=== PATIENT | female | born 1985 | race African-American/Black ===

== ENCOUNTER 2017-11-19 09:13 | Emergency (ER) | payer SELFPAY ==
[~2017-11-19] VITALS: Ht 165.1 cm; Wt 96.2 kg
[~2017-11-19 09:13] MED LIST: METR500T PO; NAPR-514 PO; OXYC-323 PO
[2017-11-19 09:54] VITALS: BP 122/71
--- NOTE | 2017-11-19 10:10 | PHYS DOC ---
Past Medical History Past Medical History: No Pertinent History Past Surgical History: , Tubal ligation Alcohol Use: Occasionally Drug Use: Marijuana Adult General Chief Complaint Chief Complaint: POST-OP PROBLEM HPI HPI Patient is a 32-year-old female who presents with complaint of bleeding from postop site. Patient had surgery for removal of an ovary last week and states that up until yesterday things had been uneventful. She states that she had slept on her side last night when she woke up this morning she saw quite a bit of blood. She states that there is no active bleeding currently. She states that on the right side of the wound it had been hard yesterday, stating that there was a knot there but then this morning it is soft again. She denies any fever, nausea or vomiting. Review of Systems Review of Systems Constitutional: Denies fever or chills [] Respiratory: Denies cough or shortness of breath [] Cardiovascular: Denies chest pain[] GI: Admits to mild postoperative abdominal discomfort but denies any nausea or vomiting.[] : Denies dysuria or hematuria [] Integument: Denies rash or skin lesions [] All other systems were reviewed and found to be within normal limits, except as documented in this note. Allergies Allergies Allergies Coded Allergies Type Severity Reaction Last Updated Verified No Known Drug Allergies 12/27/15 No Physical Exam Physical Exam Constitutional: Well developed, well nourished, no acute distress, non-toxic appearance. [] Neck: Normal range of motion, no tenderness, supple, no stridor. [] Cardiovascular:Heart rate regular rhythm, no murmur [] Lungs & Thorax: Bilateral breath sounds clear to auscultation [] Abdomen: Bowel sounds normal, soft. [] Skin: Warm, dry, no erythema, no rash. Surgical wound is clean, dry and intact with no active bleeding. No secondary signs of infection are present. [] EKG EKG [] Radiology/Procedures Radiology/Procedures [] Course & Med Decision Making Course & Med Decision Making Pertinent Labs and Imaging studies reviewed. (See chart for details) [] Dragon Disclaimer Dragon Disclaimer This electronic medical record was generated, in whole or in part, using a voice recognition dictation system. Departure Departure Impression: Primary Impression: Postoperative bleeding from incision Additional Impression: Postoperative hemorrhage of skin following non-dermatologic procedure Disposition: 01 HOME, SELF-CARE Condition: STABLE Referrals: NO PCP (PCP) Patient Instructions: Postsurgical Bleeding Problem Qualifiers JAIRO GALVEZ Jr. DO Nov 19, 2017 10:10
== END 2017-11-19 10:15 | disposition home or self-care (01) ==
LOC: ER 09:13
DX: L76.21 Postprocedural hemorrhage of skin and subcutaneous tissue following a dermatologic procedure (principal); Z98.890 Other specified postprocedural states; Z98.51 Tubal ligation status
CPT/HCPCS: 99281

== ENCOUNTER 2019-03-03 11:24 | Emergency (ER) | payer SELFPAY ==
[~2019-03-03] VITALS: Ht 165.1 cm; Wt 92.3 kg
[~2019-03-03 11:24] MED LIST changes: -OXYC-323 PO; +OXYC1TAB15 PO
[2019-03-03 12:11] VITALS: BP 139/90
--- NOTE | 2019-03-03 13:17 | RAD ---
CHEST PA LATERAL History: Cough and mid chest pain Comparison: None. Findings: Frontal and lateral views of the chest were obtained. The cardiomediastinal silhouette is normal. Pulmonary vasculature is normal. The lungs are clear. No pleural effusion or pneumothorax is seen. There is no acute bone abnormality. IMPRESSION: No acute cardiopulmonary process. Electronically signed by: Caesar Garcia MD (03/03/2019 1:15 PM) [facility]
[2019-03-03 13:20] LABS: INFLUENZA A PATIENT NEGATIVE (NEGATIVE); INFLUENZA B PATIENT POSITIVE (NEGATIVE)
[2019-03-03] MEDS ORDERED: PRED50TA PO (13:24)
[2019-03-03] MEDS ORDERED: BENZ100C PO (13:24)
--- NOTE | 2019-03-03 13:25 | PHYS DOC ---
Past Medical History Past Medical History: Other Additional Past Medical Histor: TWISTED R OVARY Past Surgical History: Tubal ligation Additional Past Surgical Histo: R OVARY REMOVED Alcohol Use: Rarely Drug Use: Marijuana Adult General Chief Complaint Chief Complaint: COUGH HPI HPI Patient is a 33 year old female who presents to the ED today complaining of cough, body aches, subjective fevers, symptoms for 3 days. Review of Systems Review of Systems Constitutional: Reports subjective fevers Eyes: Denies change in visual acuity, redness, or eye pain [] HENT: Denies nasal congestion or sore throat [] Respiratory: Reports cough, denies shortness of breath [] Cardiovascular: No additional information not addressed in HPI [] GI: Denies abdominal pain, nausea, vomiting, bloody stools or diarrhea [] : Denies dysuria or hematuria [] Musculoskeletal: Denies back pain or joint pain [] Integument: Denies rash or skin lesions [] Neurologic: Denies headache, focal weakness or sensory changes [] All other systems were reviewed and found to be within normal limits, except as documented in this note. Allergies Allergies Allergies Coded Allergies Type Severity Reaction Last Updated Verified No Known Drug Allergies 12/27/15 No Physical Exam Physical Exam Constitutional: Well developed, well nourished, no acute distress, non-toxic appearance. [] HENT: Normocephalic, atraumatic, bilateral external ears normal, oropharynx james st, no oral exudates, nose normal. [] Eyes: PERRLA, EOMI, conjunctiva normal, no discharge. [] Neck: Normal range of motion, no tenderness, supple, no stridor. [] Cardiovascular:Heart rate regular rhythm, no murmur [] Lungs & Thorax: Bilateral breath sounds clear to auscultation [] Abdomen: Bowel sounds normal, soft, no tenderness, no masses, no pulsatile masses. [] Skin: Warm, dry, no erythema, no rash. [] Back: No tenderness, no CVA tenderness. [] Extremities: No tenderness, no cyanosis, no clubbing, ROM intact, no edema. [] Neurologic: Alert and oriented X 3, normal motor function, normal sensory function, no focal deficits noted. [] Psychologic: Affect normal, judgement normal, mood normal. [] Current Patient Data Vital Signs Vital Signs Date Time Temp Pulse Resp B/P (MAP) Pulse Ox O2 Delivery O2 Flow Rate FiO2 03/03/19 12:11 98.4 83 20 139/90 (106) 96 Room Air 98.4 Lab Values Laboratory Tests Test 03/03/19 12:09 Influenza Type A Antigen Negative (NEGATIVE) Influenza Type B Antigen Positive (NEGATIVE) EKG EKG [] Radiology/Procedures Radiology/Procedures []PROCEDURE: CHEST PA & LATERAL CHEST PA LATERAL History: Cough and mid chest pain Comparison: None. Findings: Frontal and lateral views of the chest were obtained. The cardiomediastinal silhouette is normal. Pulmonary vasculature is normal. The lungs are clear. No pleural effusion or pneumothorax is seen. There is no acute bone abnormality. IMPRESSION: No acute cardiopulmonary process. Electronically signed by: Rhett Dowling MD (03/03/2019 1:15 PM) [facility] DICTATED and SIGNED BY: RHETT DOWLING MD DATE: 03/03/19 9742 Course & Med Decision Making Course & Med Decision Making Pertinent Labs and Imaging studies reviewed. (See chart for details) This is a 33-year-old female patient presenting to the ED today with flulike symptoms including body aches cough and fever for 3 days. Patient is afebrile in the ED. Positive for influenza B. Chest x-ray is negative. Supportive care measures recommended. Dragon Disclaimer Dragon Disclaimer This electronic medical record was generated, in whole or in part, using a voice recognition dictation system. Departure Departure Impression: Primary Impression: Influenza B Additional Impressions: Fever Cough Disposition: HOME, SELF-CARE Condition: STABLE Referrals: NO PCP (PCP) follow up in 1 week with your doctor Patient Instructions: Cough, Adult, [id number], Influenza, Adult Additional Instructions: You tested positive for influenza B this is a viral illness, it will ran its own course. We recommend you rest, push fluids, take Tylenol/Motrin for pain or fever. Follow-up with your doctor in the next 1-2 weeks. Scripts Benzonatate (TESSALON PERLE) 100 Mg Capsule 1 CAP PO TID, #30 CAP Prov: MUTUNGA,RAYMON MODEL TECHNICIAN 03/03/19 Prednisone (PREDNISONE) 50 Mg Tablet 1 TAB PO DAILY, #5 TAB Prov: MUTUNGA,RAYMON MODEL TECHNICIAN 03/03/19 Problem Qualifiers Additional Impressions: Fever Fever type: unspecified Qualified Codes: R50.9 - Fever, unspecified MUTUNGARAYMON VALLEJO Mar 03, 2019 13:25
== END 2019-03-03 13:40 | disposition home or self-care (01) ==
LOC: ER 11:24
DX: J10.1 Influenza due to other identified influenza virus with other respiratory manifestations (principal); R50.9 Fever, unspecified; R07.89 Other chest pain; R05 Cough; F12.90 Cannabis use, unspecified, uncomplicated; Z98.51 Tubal ligation status; Z98.890 Other specified postprocedural states
CPT/HCPCS: 71046; 87804; 99285

== ENCOUNTER 2019-10-24 17:45 | Emergency (ER) | payer BC ==
[~2019-10-24] VITALS: Ht 162.6 cm; Wt 95.0 kg
[~2019-10-24 17:45] MED LIST changes: +BENZ100C PO; +PRED50TA PO
[2019-10-24] MEDS ORDERED: ONDANSETRON PF 4 MG/2 ML VIAL. IV ONE (19:45)
[2019-10-24] MEDS ORDERED: MORPHINE SULFATE 4 MG/ML VIAL. IV ONE (19:45)
[2019-10-24] MEDS ORDERED: IV NORMAL SALINE 1000ML BAG 1,000 ML IV ONE (19:45)
[2019-10-24 19:58] LABS: BASO # 0.1 x10^3/uL (0.0-0.2); BASO % 1 % (0-3); EOS # 0.1 x10^3/uL (0.0-0.7); EOS % 1 % (0-3); HEMATOCRIT 30.2 % (36.0-47.0); HEMOGLOBIN 9.5 g/dL (12.0-15.5); LYMPH % 13 % (24-48); MEAN CORPUSCULAR HEMOGLOBIN 26 pg (25-35); MEAN CORPUSCULAR HGB CONC 32 g/dL (31-37); MEAN CORPUSCULAR VOLUME 82 fL (79-100); MONO # 0.8 x10^3/uL (0.0-1.1); MONO % 5 % (0-9); NEUT # 11.8 x10^3/uL (1.8-7.7); NEUT % 81 % (31-73); PLATELET COUNT 354 x10^3/uL (140-400); RED BLOOD COUNT 3.71 x10^6/uL (3.50-5.40); RED CELL DISTRIBUTION WIDTH 16.7 % (11.5-14.5); WHITE BLOOD COUNT 14.7 x10^3/uL (4.0-11.0)
[2019-10-24 20:06] LABS: CALCIUM 9.1 mg/dL (8.5-10.1); CREATININE 0.7 mg/dL (0.6-1.0); GFR 114.6; POTASSIUM 3.9 mmol/L (3.5-5.1)
[2019-10-24 20:12] LABS: ALBUMIN 3.3 g/dL (3.4-5.0); ALBUMIN/GLOBULIN RATIO 0.8 (1.0-1.7); MAGNESIUM 1.9 mg/dL (1.8-2.4); TOTAL BILIRUBIN 0.3 mg/dL (0.2-1.0); TOTAL PROTEIN 7.5 g/dL (6.4-8.2)
[2019-10-24] MEDS ORDERED: CONTRAST GIVEN. MC PRN (20:30)
[2019-10-24] MEDS ORDERED: IOHEXOL 300 MG/ML 100ML VIAL. IV ONE (20:30)
--- NOTE | 2019-10-24 21:17 | RAD ---
CT ABD PELV W/ IV CONTRST ONLY History: Reason: perirectal abscess Technique: After the administration of intravenous contrast, CT imaging was performed of the abdomen and pelvis. Multiplanar images are reviewed. Exposure: One or more of the following individualized dose reduction techniques were utilized for this examination: 1. Automated exposure control 2. Adjustment of the mA and/or kV according to patient size 3. Use of iterative reconstruction technique. Comparison: None Findings: Lower chest: No consolidation or pleural effusion. Abdomen and pelvis: The liver, spleen, adrenal glands, pancreas and gallbladder are unremarkable. Normal appearance the kidneys. No hydronephrosis. Normal appendix. No evidence of bowel obstruction. No pathologic lymphadenopathy. Small pelvic ascites. Infiltration of the perineum soft tissues posterior to the anal sphincter. There is hypodense collection within this region measures 2.5 x 1.7 cm (series 2 image 96). Bones: No pathologic osseous lesions. Impression: 1. Infiltration of the perineum soft tissues posterior to the anal sphincter with low-attenuation collection concerning for abscess. Follow-up MRI can further evaluate for fistulous communication to the anus as clinically warranted. 2. Small pelvic free fluid. Electronically signed by: Meet Aquino DO (10/24/2019 9:14 PM) [facility]
[2019-10-24 21:33] VITALS: BP 145/83
[2019-10-24] MEDS ORDERED: CLIN150C14 PO (21:51)
[2019-10-24] MEDS ORDERED: HYDR-2759 PO (21:51)
--- NOTE | 2019-10-24 21:52 | PHYS DOC ---
Past Medical History Past Medical History: Other Additional Past Medical Histor: TWISTED R OVARY (EDUARDO REYES APRN) Past Surgical History: Tubal ligation Additional Past Surgical Histo: R OVARY REMOVED (EDUARDO REYES APRN) Smoking Status: Never Smoker Alcohol Use: Rarely Drug Use: Marijuana (EDUARDO REYES APRN) General Adult EDM: Chief Complaint: ABSCESS HPI: HPI: Patient is a 34 year old AA female who presents to the emergency department, accompanied by her significant other, with complaints of swelling, pain, and tenderness near her rectum. Patient states it feels similar to when she had a previous boil in the same area about 10 years ago. Patient reports that symptoms started a week ago and have continued to get worse. She denies any drainage or bleeding from the site. She denies any fever, cough, abdominal pain, nausea, vomiting, diarrhea, or shortness of breath she currently rates the pain a 10 out of 10 on the pain scale she reports that the pain increases with palpation and when she sits, she denies any alleviating factors. (EDUARDO REYES APRN) Review of Systems: Review of Systems: Constitutional: Denies fever or chills. [] Respiratory: Denies cough or shortness of breath. [] GI: Denies abdominal pain, nausea, vomiting, bloody stools or diarrhea; see HPI [] : Denies dysuria. [] Integument: See HPI Neurologic: Denies headache Psychiatric: Denies depression or anxiety. [] Complete ROS is negative unless otherwise stated in the HPI. (EDUARDO REYES APRN) Heart Score: Risk Factors: Risk Factors: DM, Current or recent (<one month) smoker, HTN, HLP, family history of CAD, obesity. Risk Scores: Score 0 - 3: 2.5% MACE over next 6 weeks - Discharge Home Score 4 - 6: 20.3% MACE over next 6 weeks - Admit for Clinical Observation Score 7 - 10: 72.7% MACE over next 6 weeks - Early Invasive Strategies (EDUARDO REYES APRN) Current Medications: Current Medications Medications (Trade) Dose Ordered Sig/August Start Time Stop Time Status Last Admin Dose Admin Info (CONTRAST GIVEN -- Rx MONITORING) 1 each PRN DAILY PRN 10/24/19 20:30 10/26/19 20:29 Iohexol (Omnipaque 300 Mg/ml) 75 ml 1X ONCE 10/24/19 20:30 10/24/19 20:31 DC 10/24/19 20:53 75 ML Morphine Sulfate (Morphine Sulfate) 4 mg 1X ONCE 10/24/19 19:45 10/24/19 19:46 DC 10/24/19 20:08 4 MG Ondansetron HCl (Zofran) 4 mg 1X ONCE 10/24/19 19:45 10/24/19 19:46 DC 10/24/19 20:08 4 MG Sodium Chloride 1,000 ml @ 1,000 mls/hr 1X ONCE 10/24/19 19:45 10/24/19 20:44 DC 10/24/19 20:09 1,000 MLS/HR (EDUARDO REYES APRN) Allergies: Allergies: Allergies Coded Allergies Type Severity Reaction Last Updated Verified No Known Drug Allergies 12/27/15 No (EDUARDO REYES APRN) Physical Exam: PE: Constitutional: Well developed, well nourished, no acute distress, non-toxic appearance, obese. [] HENT: Normocephalic, atraumatic, bilateral external ears normal, nose normal. [] Eyes: PERRLA, EOMI, conjunctiva normal, no discharge. [] Neck: Normal range of motion, no stridor. [] Cardiovascular:Heart rate regular rhythm Lungs & Thorax: Respirations even and unlabored, no retractions, no respiratory distress Abdomen: soft, no tenderness Rectal: There is a swollen, tender, erythemic area located at 3:00 near the rectal opening concerning for perirectal abscess., No active bleeding, no drainage, no visible pustule Skin: Warm, dry, Extremities: No cyanosis, ROM intact, no edema. [] Neurologic: Alert and oriented X 3, no focal deficits noted. [] Psychologic: Affect normal, judgement normal, mood normal. [] (EDUARDO REYES APRN) Current Patient Data: Labs: Laboratory Tests Test 10/24/19 19:48 White Blood Count 14.7 x10^3/uL (4.0-11.0) H Red Blood Count 3.71 x10^6/uL (3.50-5.40) Hemoglobin 9.5 g/dL (12.0-15.5) L Hematocrit 30.2 % (36.0-47.0) L Mean Corpuscular Volume 82 fL (79-100) Mean Corpuscular Hemoglobin 26 pg (25-35) Mean Corpuscular Hemoglobin Concent 32 g/dL (31-37) Red Cell Distribution Width 16.7 % (11.5-14.5) H Platelet Count 354 x10^3/uL (140-400) Neutrophils (%) (Auto) 81 % (31-73) H Lymphocytes (%) (Auto) 13 % (24-48) L Monocytes (%) (Auto) 5 % (0-9) Eosinophils (%) (Auto) 1 % (0-3) Basophils (%) (Auto) 1 % (0-3) Neutrophils # (Auto) 11.8 x10^3/uL (1.8-7.7) H Lymphocytes # (Auto) 2.0 x10^3/uL (1.0-4.8) Monocytes # (Auto) 0.8 x10^3/uL (0.0-1.1) Eosinophils # (Auto) 0.1 x10^3/uL (0.0-0.7) Basophils # (Auto) 0.1 x10^3/uL (0.0-0.2) Sodium Level 138 mmol/L (136-145) Potassium Level 3.9 mmol/L (3.5-5.1) Chloride Level 105 mmol/L (98-107) Carbon Dioxide Level 23 mmol/L (21-32) Anion Gap 10 (6-14) Blood Urea Nitrogen 10 mg/dL (7-20) Creatinine 0.7 mg/dL (0.6-1.0) Estimated GFR (Cockcroft-Gault) 114.6 BUN/Creatinine Ratio 14 (6-20) Glucose Level 110 mg/dL (70-99) H Calcium Level 9.1 mg/dL (8.5-10.1) Magnesium Level 1.9 mg/dL (1.8-2.4) Total Bilirubin 0.3 mg/dL (0.2-1.0) Aspartate Amino Transferase (AST) 41 U/L (15-37) H Alanine Aminotransferase (ALT) 56 U/L (14-59) Alkaline Phosphatase 100 U/L (46-116) Total Protein 7.5 g/dL (6.4-8.2) Albumin 3.3 g/dL (3.4-5.0) L Albumin/Globulin Ratio 0.8 (1.0-1.7) L Laboratory Tests 10/24/19 19:48 Laboratory Tests 10/24/19 19:48 Vital Signs: Vital Signs Date Time Temp Pulse Resp B/P (MAP) Pulse Ox O2 Delivery O2 Flow Rate FiO2 10/24/19 20:16 72 147/71 (96) 10/24/19 20:08 16 10/24/19 19:04 97.3 100 Room Air 97.3 (EDUARDO REYES APRN) EKG: EKG: [] (EDUARDO REYES APRN) Radiology/Procedures: Radiology/Procedures: PROCEDURE: CT ABD PELV W/ IV CONTRST ONLY CT ABD PELV W/ IV CONTRST ONLY History: Reason: perirectal abscess Technique: After the administration of intravenous contrast, CT imaging was performed of the abdomen and pelvis. Multiplanar images are reviewed. Exposure: One or more of the following individualized dose reduction techniques were utilized for this examination: 1. Automated exposure control 2. Adjustment of the mA and/or kV according to patient size 3. Use of iterative reconstruction technique. Comparison: None Findings: Lower chest: No consolidation or pleural effusion. Abdomen and pelvis: The liver, spleen, adrenal glands, pancreas and gallbladder are unremarkable. Normal appearance the kidneys. No hydronephrosis. Normal appendix. No evidence of bowel obstruction. No pathologic lymphadenopathy. Small pelvic ascites. Infiltration of the perineum soft tissues posterior to the anal sphincter. There is hypodense collection within this region measures 2.5 x 1.7 cm (series 2 image 96). Bones: No pathologic osseous lesions. Impression: 1. Infiltration of the perineum soft tissues posterior to the anal sphincter with low-attenuation collection concerning for abscess. Follow-up MRI can further evaluate for fistulous communication to the anus as clinically warranted. 2. Small pelvic free fluid.[] (EDUARDO REYES APRN) Course & Med Decision Making: Course & Med Decision Making Pertinent Labs and Imaging studies reviewed. (See chart for details) 34-year-old female presents to the emergency department with complaints of pain near her rectum for the last week. She stated that her symptoms were similar to previous rectal abscesses. 2019-while awaiting CT to be done patient's abscess opened on its own without any intervention. A large amount of bloody foul-smelling pus drained from this site. CBC revealed a white blood cell count 14.7, hemoglobin 9.5, hematocrit of 30.2; CMP revealed glucose of 110, AST of [address] revealed: 1. Infiltration of the perineum soft tissues posterior to the anal sphincter with low-attenuation collection concerning for abscess. Follow-up MRI can further evaluate for fistulous communication to the anus as clinically warranted. 2. Small pelvic free fluid. [id number] spoke with Dr. Gutiérrez and advised of the patient. Will prescribe clind amycin and have patient follow-up with him as outpatient. Patient verbalized an understanding of home care, medications, follow-up, and return to ED instructions and was in agreement with the plan of care. [] (EDUARDO REYES APRN) Dragon Disclaimer: Dragon Disclaimer: This electronic medical record was generated, in whole or in part, using a voice recognition dictation system. (EDUARDO REYES APRN) Departure Departure Impression: Primary Impression: Perirectal abscess Disposition: HOME, SELF-CARE Condition: STABLE Referrals: NO PCP (PCP) ROBERTA LEWIS MD Patient Instructions: Queta-Rectal Abscess Additional Instructions: Fill the prescriptions and use it as directed. Sitz baths as instructed. Call Dr. Lewis's office for follow up. Return to the ER if symptoms worsen. Scripts Hydrocodone/Acetaminophen (Hydrocodone-Acetamin 5-325 mg) 1 Each Tablet 1 EACH PO TID PRN for PAIN for 4 Days, #12 TAB 0 Refills Prov: EDUARDO REYES APRN 10/24/19 Clindamycin Hcl (CLINDAMYCIN HCL) 150 Mg Capsule 450 MG PO TID for 7 Days, #63 CAP 0 Refills Prov: EDUARDO REYES APRN 10/24/19 Justicifation of Admission Dx: Justifications for Admission: Justification of Admission Dx: N/A (EDUARDO REYES APRN) Attending Signature Attending Signature I have reviewed the PA/[employer]'s note and plan of care. I was available for consultation as needed during the patient's visit in the emergency department. I agree with the clinical impression, plan, and disposition. (NICANOR MENDOZA DO) EDUARDO REYES APRN Oct 24, 2019 21:52 NICANOR MENDOZA DO Oct 25, 2019 16:54
== END 2019-10-24 21:55 | disposition home or self-care (01) ==
LOC: ER 17:45
DX: K61.1 Rectal abscess (principal); F12.90 Cannabis use, unspecified, uncomplicated; Z98.51 Tubal ligation status; Z98.890 Other specified postprocedural states
CPT/HCPCS: 36415; 74177; 80053; 83735; 85025; 96361; 96374; 96375; 99285; J2270; J2405; J7030; Q9967

== ENCOUNTER 2020-12-25 12:37 | Emergency (ER) | payer BC ==
[~2020-12-25] VITALS: Ht 165.1 cm; Wt 99.9 kg
[~2020-12-25 12:37] MED LIST changes: +CLIN150C16 PO; +HYDR-2759 PO
[2020-12-25 12:50] VITALS: BP 138/79
--- NOTE | 2020-12-25 13:34 | PHYS DOC ---
Past Medical History Past Medical History: Other Additional Past Medical Histor: TWISTED R OVARY Past Surgical History: Tubal ligation Additional Past Surgical Histo: R OVARY REMOVED Smoking Status: Former Smoker Alcohol Use: Occasionally Drug Use: Marijuana General Adult EDM: Chief Complaint: COUGH HPI: HPI: Patient is a 35-year-old female that presents today with cough and not feeling well. Patient states her symptoms started on Thursday she has had cough and fatigue since then. Patient does state her child was sick last week and but she was better within 24 hours, the patient continues to have symptoms. She is not aware of any COVID-19 exposure but has not had either vaccine Review of Systems: Review of Systems: Constitutional: Denies fever or chills. [] Eyes: Denies change in visual acuity. [] HENT: Denies nasal congestion or sore throat. [] Respiratory: cough or denies shortness of breath. [] Cardiovascular: Denies chest pain or edema. [] GI: Denies abdominal pain, nausea, vomiting, bloody stools or diarrhea. [] : Denies dysuria. [] Musculoskeletal: generalized fatigue [] Integument: Denies rash. [] Neurologic: Denies headache, focal weakness or sensory changes. [] Endocrine: Denies polyuria or polydipsia. [] Lymphatic: Denies swollen glands. [] Psychiatric: Denies depression or anxiety. [] Heart Score: C/O Chest Pain: N/A Risk Factors: Risk Factors: DM, Current or recent (<one month) smoker, HTN, HLP, family history of CAD, obesity. Risk Scores: Score 0 - 3: 2.5% MACE over next 6 weeks - Discharge Home Score 4 - 6: 20.3% MACE over next 6 weeks - Admit for Clinical Observation Score 7 - 10: 72.7% MACE over next 6 weeks - Early Invasive Strategies Allergies: Allergies: Allergies Coded Allergies Type Severity Reaction Last Updated Verified No Known Drug Allergies 12/25/20 No Physical Exam: PE: Constitutional: Well developed, well nourished, no acute distress, non-toxic appearance. [] HENT: Normocephalic, atraumatic, bilateral external ears normal, oropharynx moist, no oral exudates, nose normal. [] Eyes: PERRLA, EOMI, conjunctiva normal, no discharge. [] Neck: Normal range of motion, no tenderness, supple, no stridor. [] Cardiovascular:Heart rate regular rhythm, no murmur [] Lungs & Thorax: Bilateral breath sounds clear to auscultation [] Abdomen: Bowel sounds normal, soft, no tenderness, no masses, no pulsatile masses. [] Skin: Warm, dry, no erythema, no rash. [] Back: No tenderness, no CVA tenderness. [] Extremities: No tenderness, no cyanosis, no clubbing, ROM intact, no edema. [] Neurologic: Alert and oriented X 3, normal motor function, normal sensory function, no focal deficits noted. [] Psychologic: Affect normal, judgement normal, mood normal. [] Current Patient Data: Labs: Laboratory Tests Test 12/25/20 13:40 Influenza Type A Antigen Positive Influenza Type B Antigen Positive SARS-CoV-2 Antigen (Rapid) Positive Current Medications Medications (Trade) Dose Ordered Sig/August Route PRN Reason Start Time Stop Time Status Last Admin Dose Admin Ibuprofen (Motrin) 600 mg 1X ONCE PO 12/25/20 13:45 12/25/20 13:46 DC 12/25/20 13:40 Vital Signs: Vital Signs Date Time Temp Pulse Resp B/P (MAP) Pulse Ox O2 Delivery O2 Flow Rate FiO2 12/25/20 12:50 99.0 91 18 138/79 (98) 99 Room Air 99.0 Vital Signs Date Time Temp Pulse Resp B/P (MAP) Pulse Ox O2 Delivery O2 Flow Rate FiO2 12/25/20 12:50 99.0 91 18 138/79 (98) 99 Room Air 99.0 EKG: EKG: [] Radiology/Procedures: Radiology/Procedures: [] Course & Med Decision Making: Course & Med Decision Making Pertinent Labs and Imaging studies reviewed. (See chart for details) 1500 patient states feeling better eating candy at the bedside. We will send patient home with strict instructions to return for increased shortness of breath, inability to keep by mouth fluids, fever not controlled by Tylenol and/or ibuprofen or any fainting episode. Patient will need to quarantine 2 weeks from last Thursday patient will be given a work excuse and discharge instructions with outline Covid quarantine instructions [] Dragon Disclaimer: Dragon Disclaimer: This electronic medical record was generated, in whole or in part, using a voice recognition dictation system. Departure Departure Impression: Primary Impression: COVID-19 Additional Impressions: Influenza A Influenza B Disposition: 01 HOME / SELF CARE / HOMELESS Condition: STABLE Referrals: NO PCP (PCP) Patient Instructions: Cough, Adult, Fever of Unknown Origin, Influenza, Adult Additional Instructions: You have been tested for or diagnosed with COVID-19. It is an infection caused by a new type of coronavirus. COVID-19 will cause cold-like or mild flu symptoms in most. It can cause more severe symptoms like problems breathing in some. There is no treatment for COVID-19. The body will clear the infection over time. Self-care will help to ease discomfort. Steps to Take: Self-Care Rest as needed. Healthy habits may help you feel better. Steps include: Choose healthy foods including fruits and vegetables. Drink water throughout the day. Get plenty of sleep each night. If you smoke, try to quit. It may ease breathing. Avoid alcohol. Keep Others Healthy The virus can spread to others. Droplets are released every time you sneeze or cough. The droplets can get into the mouth, nose, or eyes of people near you and lead to infection. To lower the chances of spreading COVID-19 to others: Stay at home until your doctor has said it is safe to leave. If you tested positive this will mean staying isolated until both of the following are true: At least 7 days have passed since the start of illness. You are free of fever for at least 72 hours without the use of medicine. During this time: - Avoid public areas, events, or transportation. Do not return to work or school until your doctor has said it is safe to do so. - Call ahead if you need to go to a medical center. Let them know you may have COVID-19. It will help them guide you where to go. They may also ask you to wear a facemask when you come to the office. - If you call for emergency medical services, let them know you may have COVID- 19. While at home: - Try to avoid close contact with others. Stay about 6 feet away. - If possible, spend most of your time in a separate room from others. - Use a face mask if you will be in close contact with others such as sharing a room or vehicle. - Have someone wipe down common surfaces in the home. Use household check processor every day on areas like doorknobs, counters, or sinks. - Cough or sneeze into a tissue. Throw the tissue away right after use. If a tissue is not available, cough or sneeze into your elbow. - Wash your hands often. Wash them after sneezing or coughing. Use soap and water and wash for at least 20 seconds. Alcohol based hand street cleaner can be used if soap and water is not available. - Do not prepare food for others. Avoid sharing personal items like forks, spoons, or toothbrushes. - Avoid close contact with pets while you are sick. There is no evidence of the virus passing to pets. This is a safety step until more is known about this virus. Isolation can be frustrating. Social interaction can help. Keep in touch with friends and family through phone and tech options. You can still interact with others in your home, just keep a safe distance of about 6 feet. Follow-up: Your doctors office will check in with you to see if there are any changes in your health. You may be asked to keep track of symptoms to share with them. They will also let you know when you are clear to be in public again. Problems to Look Out For: Contact your doctor if your recovery is not going as you expect. Get emergency care if you have problems such as: - Trouble breathing - Nonstop chest pain or pressure - Changes in awareness, confusion, or problems waking - Lips or face have bluish color - Worsening of symptoms If you think you have an emergency, call for emergency medical services right away. As taken from [facility] Take [id number] Tylenol and/or ibuprofen as needed for body aches and pain Increase by mouth fluids especially water and/or Gatorade Return to the emergency department for any of the above symptoms KEV CAMPBELL APRN Dec 25, 2020 13:34
[2020-12-25] MEDS ORDERED: IBUPROFEN 200 MG TABLET. PO ONE (13:45)
[2020-12-25 14:29] LABS: INFLUENZA A PATIENT POSITIVE (NEGATIVE); INFLUENZA B PATIENT POSITIVE (NEGATIVE)
== END 2020-12-25 15:46 | disposition home or self-care (01) ==
LOC: ER 12:37
DX: U07.1 COVID-19 (principal); Z87.891 Personal history of nicotine dependence
CPT/HCPCS: 87426; 87804; 99283; U0003; U0005